=== PATIENT | male | born 1940 | race Caucasian/White ===

== ENCOUNTER 2020-02-23 15:23 | Emergency (ER) | payer MEDICARE, SELFPAY ==
--- NOTE | ~2020-02-23 | XR_ITS ---
EXAMINATION: XR foot LT min 3V EXAM DATE: 02/23/2020 16:27 INDICATION: Initial encounter following injury, with pain of the left foot. TECHNIQUE: Left foot dorsoplantar, lateral and oblique projections obtained and reviewed. There is n o prior study for comparison. FINDINGS: Left metatarsal bones unremarkable. There are no acute fractures or dislocations identifi ed. There is no subcutaneous gas. There are arterial calcifications, arteriosclerosis. There is mil d polyarticular primary osteoarthritis. There are no radiopaque foreign bodies. IMPRESSION: Chronic findings as above. Reviewed, dictated and finalized at location A. IMPRESSION: Chronic findings as above.
--- NOTE | ~2020-02-23 | XR_ITS ---
EXAMINATION: XR tibia fibula LT 2V EXAM DATE: 02/23/2020 16:27 INDICATION: Initial encounter following injury, with pain of the left leg. TECHNIQUE: Left tibia/fibula frontal and lateral projections obtained and reviewed. There is no prio r study for comparison. FINDINGS: There is fracture through the midshaft of the left fibula which appears to be completely h ealed. Also sequela from prior medial malleolar avulsion injuries. There are arterial calcifications, arteriosclerosis. There are no acute fractures identified. No knee joint effusion. IMPRESSION: 1. Healed left mid fibular fracture. Reviewed, dictated and finalized at location A.
--- NOTE | ~2020-02-23 | CT_ITS ---
EXAMINATION: CT brain wo con DATE: 02/23/2020 16:12 INDICATION: Status post fall. Head injury. TECHNIQUE: Computed tomography (CT) of the head was performed without intravenous contrast. The dose- length product was 681.00 mGy-cm. The mA was adjusted according to patient size. Iterative reconstruc tion technique was employed. COMPARISON: None FINDINGS: Generalized brain parenchymal volume loss. There are scattered mild periventricular and sub cortical white matter changes, most likely related to small vessel ischemic disease (microangiopathy) . Basilar cisterns are patent. No acute intracranial hemorrhage, infarction, mass or mass effect. Par anasal sinuses and mastoids are pneumatized. No depressed skull fractures. IMPRESSION: 1. No acute intracranial abnormality. 2: Chronic age-related findings. Reviewed, dictated and finalized at location A.
--- NOTE | ~2020-02-23 | CT_ITS ---
EXAMINATION: CT chst ab pel yuri lum w EXAM DATE: 02/23/2020 16:12 INDICATION: Fall, injury with chest abdomen pelvis and back pain. Tractor landed on top of him. TECHNIQUE: Spiral CT of the chest, abdomen and pelvis was performed following intravenous injection o f 100 mL Omnipaque 350. Axial, coronal and sagittal images were reviewed. Coronal maximum intensity pixel images of chest reviewed. Spiral CT thoracolumbar spine was performed with the same injection of contrast. Axial, coronal and sagittal images of the thoracic spine were reviewed. Axial, coronal a nd sagittal images of the lumbar spine were reviewed. The dose-length product (DLP) for this examina tion was 783.32 mGy-cm. The exposure was tailored according to patient size (auto mA exposure contro l), and iterative reconstruction (ASIR) was used as additional dose reduction technique. There is no prior study for comparison. FINDINGS: CHEST: There are acute left first and second rib fractures anteriorly with mild displacement of the s econd rib fracture. There are tiny foci of pneumomediastinum, tiny foci of gas along the left interco stal musculature between the first and second ribs and in the left retroclavicular region. Acute disp laced right first and second rib fractures anteriorly and nondisplaced right third, fourth and fifth rib fractures anteriorly. There is no pneumothorax suspected. There is cardiomegaly and pulmonary va scular congestion. There are regions of linear atelectasis. No central pulmonary emboli. Trace bilate ral pleural effusions. No pericardial effusion. Tracheobronchial tree is patent. There is no media stinal, hilar or axillary lymphadenopathy. There is mild coronary arterial calcification, arterial sclerosis. ABDOMEN PELVIS: No solid organ injury. The liver, spleen, adrenal glands and pancreas are unremarkab le. The gallbladder is contracted but otherwise unremarkable. Some exophytic renal cysts. Portal an d splenic veins are patent. Kidneys enhance symmetrically. There is no hydronephrosis. The prosta te is unremarkable. The bladder is unremarkable. There is no retroperitoneal or pelvic lymphadenopa thy. There is mild scattered arteriosclerotic disease. The appendix is not positively visualized. There is no pericecal inflammatory change to suggest appe ndicitis. The stomach and small bowel are unremarkable. There is expected amount of colonic stool. No free intraperitoneal gas. No pelvic or hip fracture. Small umbilical fat-containing hernia. THORACIC SPINE: Acute right third and fifth rib fractures of the posteromedial aspects. Patient has d iffuse idiopathic skeletal hyperostosis without fracture line identified through the osteophytes. No evidence of vertebral body fracture. The vertebral bodies are aligned in the AP dimension. There a re moderate-sized endplate osteophytes and overall moderate disc disease, mild to moderate facet arth ropathy. LUMBAR SPINE: Sacroiliac joints are intact. There is moderate to severe disc disease from L1 through L5. There is no evidence of acute lumbar fracture or spondylolysis. There is no disc space widening or traumatic vertebral body subluxation suspected. Paraspinal soft tissue is unremarkable. Congeni tally narrow lumbar spinal canal with superimposed spondylosis, central canal most severely narrowed at L2-3 and L3-4. IMPRESSION: 1. Acute right 1st-5th rib fractures and left 1st-2nd rib fractures. Small pneumomediastinum. Patien t at risk for flail chest and pneumothorax. 2. Cardiomegaly, trace pleural effusions. 3. 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 4. No acute abdomen or pelvis findings. Reviewed, dictated and finalized at location A. Electronically signed by Khanh Bartlett
--- NOTE | ~2020-02-23 | CT_ITS ---
EXAMINATION: CT cervical spine wo con DATE: 02/23/2020 16:12 INDICATION: Neck pain after fall TECHNIQUE: Computed tomography (CT) of the cervical spine was performed without intravenous contrast. The dose-length product was 454 mGy-cm. Automated exposure control and iterative reconstruction tech nique were employed. COMPARISON: No prior studies for comparison. FINDINGS: There is disc narrowing and endplate degenerative changes at C3-4 through C6-7. There is de generative anterolisthesis at C7-T1. Odontoid process within normal limits. There is generalized oste openia. No evidence for perched facet. There is advanced multilevel uncinate and to a lesser degree f acet degenerative change. Lung apices are normal. Odontoid process within normal limits. No paraspina l soft tissue abnormality. IMPRESSION: 1. No acute abnormality of the cervical spine. 2: Severe cervical spondylosis. Reviewed, dictated and finalized at location A.
[2020-02-23 15:23] VITALS: BP 116/67; PULSE 67; RESP 21; TEMP 36.4; O2SAT 93
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
[2020-02-23 16:30] VITALS: BP 133/77; PULSE 70; RESP 16; O2SAT 98
[2020-02-23] MEDS: ONDANSETRON INJ 4 MG/2 ML VIAL IV PUSH (16:32)
[2020-02-23] MEDS: MORPHINE SULFATE 4 MG/ML INJ IV PUSH (16:32)
[2020-02-23] MEDS: TETANUS,DIPHTHERIA,AC PERTUSSIS ADULT (0.5 ML) BOOSTRIX IM (16:32)
[2020-02-23] MEDS: SODIUM CHLORIDE 0.9% IV 1,000 ML 999 ML IV CONT (16:32)
[2020-02-23 17:01] LABS: Basophils Absolute Auto 0.1 K/mm3 (0.0-0.1); Basophils Percent Auto 0.4 % (0.2-1.2); Eosinophils Absolute Auto 0.1 K/mm3 (0-0.3); Eosinophils Percent Auto 0.4 % (0-4.4); Hematocrit 39.6 % (42.0-52.0); Hemoglobin 13.5 g/dL (14.0-18.0); Immature Granulocyte Absolute 0.08 K/mm3 (0.00-0.031); Immature Granulocyte Percent A 0.5 % (0-0.5); Lymphocytes Absolute Auto 0.92 K/mm3 (0.9-3.2); Lymphocytes Percent Auto 5.8 % (18.3-44.2); Mean Corpuscular HGB Conc 34.1 g/dl (32-36); Mean Corpuscular Hemoglobin 30.8 pg (26-34); Mean Corpuscular Volume 90.4 fl (80-100); Mean Platelet Volume 9.8 fl (7.4-10.4); Monocytes Percent Auto 6.5 % (2.6-8.5); Neutrophils Absolute Auto 13.7 K/mm3 (1.3-6.7); Neutrophils Percent Auto 86.4 % (45.5-73.1); Platelet Count Result 178 k/mm3 (150-375); Red Blood Count 4.38 M/mm3 (4.6-6.20); Red Cell Distribution Width 12.5 % (11.5-14.5); White Blood Count 15.8 K/mm3 (4.5-10.0)
[2020-02-23 17:12] LABS: INR 2.1; Prothrombin Time 23.3 Seconds (11.1-14.7)
[2020-02-23 17:13] LABS: Partial Thromboplastin Time 27.6 SECONDS (22.3-36.8)
[2020-02-23 17:30] VITALS: BP 138/78; PULSE 68; RESP 14; O2SAT 97
[2020-02-23 17:30] LABS: Alanine Aminotransferase 10 U/L (4-50); Albumin Level 3.8 g/dL (3.5-5.1); Alkaline Phosphatase 70 U/L (38-126); Aspartate Amino Transferase 42 U/L (17-59); Bilirubin,Total 0.8 mg/dL (0.2-1.3); Blood Urea Nitrogen 15 mg/dL (9-20); Calcium 8.9 mg/dL (8.4-10.2); Carbon Dioxide 30 mmol/L (22-30); Chloride 99 mmol/L (98-107); Estimated CRCL calculation 67 ml/min; Estimated Glomerular Filt Rate 58; Glucose 128 mg/dL (75-110); Potassium 3.6 mmol/L (3.4-5.0); Sodium 137 mmol/L (137-145)
[2020-02-23 17:40] LABS: Troponin I 0.022 ng/mL (0.000-0.034)
[2020-02-23 18:15] VITALS: BP 122/90; PULSE 72; RESP 13; O2SAT 97
--- NOTE | 2020-02-23 18:33 | PC.NURSE ---
at 1758 [facility] accepted transfer at 1829 [facility] notified [facility] sec that the could not do transfer that truck broke down in [facility]
--- NOTE | 2020-02-23 18:41 | PC.NURSE ---
[facility] declined transfer [facility] accepted transfer ETA 30min Trip # [id number]
[2020-02-23] MEDS: methylPREDNISolone SOD SUCC 125 MG VIAL IV PUSH (18:49)
== END 2020-02-23 19:46 | disposition short-term general hospital (02) ==
PROVIDERS: Emergency Provider Emergency Medicine; PCP Family Medicine
DX: T79.7XXA Traumatic subcutaneous emphysema, initial encounter (principal); S22.43XA Multiple fractures of ribs, bilateral, initial encounter for closed fracture; I11.0 Hypertensive heart disease with heart failure; F03.90 Unspecified dementia, unspecified severity, without behavioral disturbance, psychotic disturbance, mood disturbance, and anxiety; G93.1 Anoxic brain damage, not elsewhere classified; Z79.01 Long term (current) use of anticoagulants; G21.4 Vascular parkinsonism; I48.91 Unspecified atrial fibrillation; I50.33 Acute on chronic diastolic (congestive) heart failure; M47.812 Spondylosis without myelopathy or radiculopathy, cervical region; Z23 Encounter for immunization; M47.816 Spondylosis without myelopathy or radiculopathy, lumbar region; M48.061 Spinal stenosis, lumbar region without neurogenic claudication; W30.89XA Contact with other specified agricultural machinery, initial encounter; Y93.H2 Activity, gardening and landscaping; W28.XXXA Contact with powered lawn mower, initial encounter
CPT/HCPCS: 36415; 70450; 71260; 72125; 72129; 72132; 73590; 73630; 74177; 80053; 84484; 85025; 85610; 85730; 86850; 86900; 86901; 90471; 90715; 96361; 96365; 96367; 96375; 99285; J0131; J0692; J2270; J2405; J2930; J3370; J7030; Q9967

== ENCOUNTER 2020-10-29 10:40 | Inpatient (IN) | payer MEDICARE, SELFPAY ==
[2020-10-29] VITALS (18 sets, daily range): BP systolic 132–154; BP diastolic 72–104; PULSE 71–88; RESP 17–30; TEMP 36.1–36.6; O2SAT 87–100; BMI 26.5
--- NOTE | ~2020-10-29 | XR_ITS ---
EXAMINATION: XR chest 1V portable INDICATION: Shortness of breath TECHNIQUE: Portable AP chest at 1119 hours COMPARISON: 11/10/2018 FINDINGS: There is small right pleural effusion. Patchy bilateral airspace opacities are present. The cardiomediastinal silhouette is normal. There is no pneumothorax. IMPRESSION: 1. Small right pleural effusion. 2. Patchy bilateral airspace opacities, consistent with atelectasis versus pneumonia. Reviewed, dictated and finalized at location A. C BOOK DESIGNER IMPRESSION: 1. Small right pleural effusion. 2. Patchy bilateral airspace opacities, consistent with atelectasis versus pneu monia.
--- NOTE | ~2020-10-29 | CT_ITS ---
EXAMINATION: CT chest wo con DATE: 10/29/2020 12:10 INDICATION: Shortness of breath TECHNIQUE: Computed tomography (CT) of the chest was performed without intravenous contrast. The dose -length product (DLP) was 237.89 mGy-cm. Automated exposure control and iterative reconstruction tech nique were employed. COMPARISON: None FINDINGS: Small pleural effusions are present, right greater than left. Respiratory motion artifact s lightly limits the examination. There are patchy airspace opacities of the lungs. No pneumothorax is identified. The heart size is normal. There are markedly enlarged left axillary and left subpectoral lymph nodes. The largest measures 5.5 x 4.3 cm. There is mild mediastinal lymphadenopathy. There are multiple right-sided rib fractures in various stages of healing. There are acute segmental fractures of the right seventh and eighth ribs. There are bridging osteophytes at multiple levels in the spine, consistent with diffuse idiopathic skeletal hyperostosis (DISH).There is a 2.3 cm cyst of the left k idney upper pole. An unchanged 1.5 cm lesion of the right kidney upper pole has a density similar to the previous contrast enhanced CT and likely represents a proteinaceous cyst. IMPRESSION: 1. Small pleural effusions, right greater than left. 2. Patchy airspace opacities of the lungs, consistent with pneumonia. 3. Right-sided rib fractures in various stages of healing including acute segmental fractures of the left seventh and eighth ribs. 4. Bulky right axillary and subpectoral lymphadenopathy and mild mediastinal lymphadenopathy, consist ent with lymphoma or possibly metastatic disease. Axillary lymph nodes would be accessible by ultraso und guided biopsy which is recommended. Reviewed, dictated and finalized at location A. GRAPHER IMPRESSION: 1. Small pleural effusions, right greater than left. 2. Patchy airspace opacities of the lungs, consistent with pneumonia. 3. Right-sided rib fractures in various stages of healing including acute segme ntal fractures of the left seventh and eighth ribs. 4. Bulky right axillary and subpectoral lymphadenopathy and mild mediastinal ly mphadenopathy, consistent with lymphoma or possibly metastatic disease. Axillar y lymph nodes would be accessible by ultrasound guided biopsy which is recommen ded.
--- NOTE | ~2020-10-29 | US_ITS ---
EXAMINATION: US biopsy lymph node DATE: 11/02/2020 12:18 INDICATION: Left axillary lymphadenopathy. TECHNIQUE: The procedure including the risks, benefits, and alternatives was discussed with the patie nt. Risks discussed included bleeding and infection. The patient understood the risks and agreed to p roceed. The skin overlying the left axilla was prepped and draped in usual sterile fashion. Anesthet ic was administered with 1% lidocaine subcutaneously. An 18 gauge core biopsy needle was then used t o obtain 6 core biopsy specimens under continuous sonographic guidance. The entry site was cleaned an d dressed. There were no immediate complications. FINDINGS: Ultrasound images demonstrate the needle in a 4.5 x 2.5 cm left axillary lymph node. IMPRESSION: 1. Ultrasound-guided core needle biopsy of an enlarged left axillary lymph node. Reviewed, dictated and finalized at location A. CTOR OF RECRUITING IMPRESSION: 1. Ultrasound-guided core needle biopsy of an enlarged left axillary lymph node .
--- NOTE | 2020-10-29 10:43 | ECG_ITS ---
Measurements Intervals [place] Rate: 79 P: [place]: 0 QRS: 27 QRSD: 110 T: 136 QT: 384 QTc: 441 Interpretive Statements ATRIAL FIBRILLATION ST-T WAVE ABNORMALITY IN ANTEROLAT/HIGH LAT LEADS- CONSIDER ISCHEMIA BASELINE ARTIFACT- I, II, III, AVR, AVF, V3 ABNORMAL ECG Electronically Signed On 10-29-2020 11:22:39 STAVE LOG RIPSAW OPERATOR by Justin Shi D.O.
[2020-10-29 11:05] LABS: Basophils Absolute Auto 0.1 K/mm3 (0.0-0.1); Basophils Percent Auto 0.6 % (0.2-1.2); Eosinophils Absolute Auto 0.3 K/mm3 (0-0.3); Eosinophils Percent Auto 2.4 % (0-4.4); Hematocrit 41.8 % (42.0-52.0); Immature Granulocyte Absolute 0.04 K/mm3 (0.00-0.031); Immature Granulocyte Percent A 0.3 % (0-0.5); Lymphocytes Percent Auto 9.3 % (18.3-44.2); Mean Corpuscular HGB Conc 33.5 g/dl (32-36); Mean Corpuscular Volume 92.5 fl (80-100); Mean Platelet Volume 9.6 fl (7.4-10.4); Monocytes Percent Auto 8.8 % (2.6-8.5); Neutrophils Absolute Auto 9.3 K/mm3 (1.3-6.7); Neutrophils Percent Auto 78.6 % (45.5-73.1); Platelet Count Result 248 k/mm3 (150-375); Red Blood Count 4.52 M/mm3 (4.6-6.20); Red Cell Distribution Width 13.8 % (11.5-14.5); White Blood Count 11.9 K/mm3 (4.5-10.0)
--- NOTE | 2020-10-29 11:15 | ED.SOB ---
HPI - SOB/Dyspnea General Chief Complaint: Shortness of Breath/Dyspnea Stated Complaint: DIFFICULTY BREATHING Time Seen by Provider: 10/29/20 11:10 Source: patient Mode of arrival: ambulatory Limitations: no limitations History of Present Illness HPI Narrative: Patient 70-year-old male complaining of shortness of breath worse with exertion and laying flat x2 days. Per EMS patient oxygen saturation was 86% when they arrived. Patient was placed on 6 L nasal cannula. Patient admits to history of congestive heart failure atrial fib, on Lasix and warfarin. Patient denies any chest pain, abdominal pain, nausea, vomiting, fever or chills. Related Data Home Medications Medication Instructions Recorded Confirmed celecoxib 200 mg capsule 200 mg PO DAILY 11/17/19 10/22/20 quetiapine 10/29/20 Allergies Allergy/AdvReac Type Severity Reaction Status Date / Time atenolol Allergy Unknown drowsy Verified 10/29/20 11:43 nut - unspecified Allergy Unknown Skin Verified 10/29/20 11:43 Reaction Penicillins Allergy Unknown Unknown Verified 10/29/20 11:43 red dye Allergy Unknown RASH-ITCHIN Verified 10/29/20 11:43 G Sulfa (Sulfonamide Allergy Unknown Unknown Verified 10/29/20 11:43 Antibiotics) trazodone Allergy Unknown nightmares Verified 10/29/20 11:43 acetaminophen [From [place]] AdvReac Intermediate Itching Verified 10/29/20 11:43 hydrocodone [From [place]] AdvReac Intermediate Itching Verified 10/29/20 11:43 Review of Systems Review of Systems: All systems reviewed & are unremarkable except as noted in HPI and below Constitutional: Constitutional: Denies body ache(s), Denies chills, Denies excessive sweating, Denies fatigue, Denies fever(s), Denies headache(s), Denies lethargy, Denies malaise, Denies weakness and Denies weight loss Eyes: Eyes: Denies blurry vision, Denies change in vision and Denies loss of vision ENT: Denies dizziness, Denies ear discharge, Denies headache(s), Denies lip swelling, Denies epistaxis, Denies nasal congestion, Denies neck pain, Denies throat swelling and Denies tongue swelling Cardiovascular: Cardiovascular: Denies chest pain, Denies chest pain at rest, Denies chest pain with activity, Denies diaphoresis, Denies rapid heart rate, Denies edema, Denies irregular heart rhythm, Denies lightheadedness and Denies palpitations Respiratory: Respiratory: Denies chest congestion, Denies cough and Denies hemoptysis Gastrointestinal: Gastrointestinal: Denies abdominal pain, Denies melena, Denies hematochezia, Denies diarrhea, Denies nausea, Denies vomiting and Denies hematemesis Musculoskeletal: Musculoskeletal: Denies abnormal gait, Denies deformity, Denies joint swelling, Denies limited range of motion, Denies neck pain and Denies numbness Neurologic: Denies Abnormal speech present, Denies abnormal gait, Denies confusion, Denies dizziness, Denies headache(s), Denies focal weakness, Denies loss of vision, Denies numbness, Denies Other visual disturbances, Denies Sensory deficit (Neuro) and Denies weakness Psychiatric: Psychiatric: Denies confusion, Denies depression, Denies auditory hallucinations, Denies homicidal ideation and Denies suicidal ideation Endocrine: Endocrine: Denies cold intolerance, Denies excessive sweating, Denies fatigue, Denies heat intolerance and Denies palpitations Hematologic/Lymphatic: Hematologic/Lymphatic: Denies easy bleeding and Denies easy bruising Allergic/Immunologic: Allergic/Immunologic: Denies lip swelling, Denies throat swelling and Denies tongue swelling PMFSH Past Medical History Medical History Actinic keratoses Acute on chronic diastolic CHF (congestive heart failure) Angioneurotic edema, sequela Displacement of lumbar intervertebral disc without myelopathy Essential (primary) hypertension Essential tremor Fracture of ribs, eight or more Hallucinations due to late onset dementia Hypoxic encephalopathy Left-sided
[2020-10-29 11:18] LABS: Partial Thromboplastin Time 47.9 SECONDS (22.3-36.8)
[2020-10-29 11:20] LABS: Anion Gap 10 mmol/L (8-16); Blood Urea Nitrogen 20 mg/dL (9-20); Calcium 8.9 mg/dL (8.4-10.2); Carbon Dioxide 30 mmol/L (22-30); Chloride 103 mmol/L (98-107); Estimated CRCL calculation 39 ml/min; Estimated Glomerular Filt Rate 53; Glucose 108 mg/dL (75-110); Potassium 3.8 mmol/L (3.4-5.0); Sodium 143 mmol/L (137-145)
[2020-10-29 11:21] LABS: Lactic Acid Reflex 1.7 mmol/L (0.7-2.1)
[2020-10-29 11:34] LABS: NT Pro B Type Natriuretic Pept 2360 PG/ML (5-100); Troponin I 0.016 ng/mL (0.000-0.034)
[2020-10-29 11:40] LABS: Base Excess ABG -0.1 mEq/l (+/-2.0); Carboxyhemoglobin 0.3 % THb (0-2.0); Device NASAL CANNULA; Fractional Inspired Oxygen 44 %; HCO3 ABG 23.4 mEq/l (22.0-26.0); Methemoglobin ABG 0.3 %THb (0-1.5); Modified Allen's Test Pass; Oxygen Content ABG 18.3 %vol (16.0-22.0); Oxygen Saturation ABG 99.1 % (95.0-100.0); Oxyhemoglobin 97.8 % THb (90.0-100.0); PCO2 ABG 34.6 mmHg (35.0-45.0); PO2 ABG 156.3 mmHg (80.0-100.0); PO2 FiO2 Ratio Arterial Blood 3.55 %; Reduced Hemoglobin 1.6 %THb (0-5.0); Site Drawn RIGHT RADIAL; Total Hemoglobin 13.1 g/dL (12.0-18.0); pH ABG 7.448 (7.350-7.450)
[2020-10-29] MEDS: FUROSEMIDE INJ 40 MG/4 ML VIAL IV PUSH (11:55)
--- NOTE | 2020-10-29 13:23 | PC.NURSE ---
Spoke to Fern Taylor at [phone] and discussed POC per pts permission.
[2020-10-29] MEDS: DEXAMETHASONE SOD PHOS INJ 4 MG/ML VIAL 10 MG IV PUSH (13:52)
[2020-10-29] MEDS: IPRATROPIUM BR 0.02% INH SOLN 0.5 MG/2.5 ML VIAL INHALATION (14:02)
[2020-10-29] MEDS: ALBUTEROL SULFATE NEB 2.5 MG/0.5 ML INH 5 MG INHALATION (14:02)
[2020-10-29] MEDS: ACETAMINOPHEN 325 MG TABLET 650 MG (19:37)
[2020-10-29 22:22] LABS: SARS-CoV-2 RNA PCR Negative
--- NOTE | 2020-10-29 23:07 | PC.NURSE ---
This patient, Ramses Taylor, was admitted to IMU Room 213-01. Patient/family oriented to hospital policies and general routines including ID braceletanagement, bed and alarms, visiting hours, pain m, procedures, bathroom and other care routines, personal items, smoking policy, room service/diet, and visiting hours. Information on how to activate the Rapid Response Team has been discussed. Patient/Family are encouraged to report perceived risks to care and to ask questions if they do not understand what they are told or what they should do.
[2020-10-30] VITALS (25 sets, daily range): BP systolic 92–189; BP diastolic 48–93; PULSE 55–103; RESP 18–24; TEMP 36.1–36.9; O2SAT 92–97
--- NOTE | 2020-10-30 03:02 | PM.IMHP ---
H&P: HPI History of Present Illness Date/Time: 10/30/20 03:02 Chief Complaint: Shortness of breath Narrative: Ramses Taylor is a 80 year old male with a past medical history of hypertension, CHF, atrial fibrillation and Parkinson's to shortness of breath and orthopnea. In the field the patient had oxygen saturations of 86% on room air. He also reported dyspnea on exertion and orthopnea. Patient will not offer specific symptoms in seems confused. But if you ask him about a symptom he is able to give more details in his response. He has not had any documented fevers but he did report having chills at home. His symptoms have been occurring for approximately2-4 days. However, the patient is a poor historian with his history of dementia. His reports that he has chronic dribbling with urination but he denies any urinary symptoms. He has been having decreased appetite. At the time of my evaluation the patient did report of brief episode of nausea. Also his telemetry demonstrated potential change in the nurse was concerned that he had developed a bundle branch block. Repeat EKG was performed which demonstrated stable EKG findings. He has not had any recent ill contacts. He was tested for COVID in the ER and his test has already returned as negative. On 6 L nasal cannula in the ER his ABG returned with a PO2 of 156. We have subsequently wean the patient's oxygen down to 3 L nasal cannula. He appears comfortable and not having tachypnea. And Lasix in the ER. Airspace opacities consistent with atelectasis versus pneumonia given his leukocytosis he was started on empiric antibiotic therapy and cultures were obtained. Initially the patient did not fit sepsis criteria but he has subsequently developed tachypnea and tachycardia shortly after my evaluation and associated leukocytosis and pneumonia on x-ray supporting sepsis diagnosis. Review of Systems Review of Systems: Narrative: 12 systems were reviewed with pertinent positives and negatives per HPI. Except as documented in the HPI, all other systems were reviewed and are negative. Limited due to patient's dementia. [facility] Past Medical History Medical History (Updated 10/30/20 @ 07:59 by Rebecca Cantrell DO) Actinic keratoses Angioneurotic edema, sequela Chronic atrial fibrillation CVA (cerebral vascular accident) Diastolic CHF Echocardiogram October 2018: Normal left ventricular systolic function, mild concentric left ventricular hypertrophy, diastolic dysfunction, ejection fraction 55-60%, moderate left atrial enlargement, mild right atrial enlargement, mild to moderate mitral valve regurgitation, mild aortic valve regurgitation, RVSP 38 Displacement of lumbar intervertebral disc without myelopathy Eczema Essential (primary) hypertension Fracture of ribs, eight or more GERD (gastroesophageal reflux disease) Hallucinations due to late onset dementia Hemorrhoids Hiatal hernia Hypoxic encephalopathy Irritable bowel Left-sided neglect alf (current) use of anticoagulants Major depressive disorder, single episode, unspecified Memory loss due to medical condition Overweight (BMI 25.0-29.9) Peripheral neuropathy Spinal stenosis, site unspecified Stress reaction with psychomotor agitation Urinary incontinence Vascular dementia Vascular parkinsonism Weight loss Surgical History Surgical History (Updated 10/30/20 @ 03:19 by Rebecca Cantrell DO) History of ankle surgery ORIF of the right ankle with subsequent removal of hardware 1998 History of appendectomy History of colonoscopy with polypectomy Hx of tonsillectomy Family History Family History (Updated 10/30/20 @ 03:24 by Rebecca Cantrell DO) Father , In his 70s Acute myocardial infarction Heart disease Sibling Carcinoma of colon Mother , In her 70s Throat cancer Social History Social History (Updated 10/30/20 @ 03:09 by Rebecca Cantrell DO) Social History: He lives at home with his wif
[2020-10-30 04:31] LABS: Hematocrit 37.1 % (42.0-52.0); Hemoglobin 12.6 g/dL (14.0-18.0); Mean Corpuscular Hemoglobin 31.3 pg (26-34); Mean Corpuscular Volume 92.3 fl (80-100); Mean Platelet Volume 9.3 fl (7.4-10.4); Platelet Count Result 226 k/mm3 (150-375); Red Blood Count 4.02 M/mm3 (4.6-6.20); Red Cell Distribution Width 13.4 % (11.5-14.5); White Blood Count 12.4 K/mm3 (4.5-10.0)
[2020-10-30] MEDS: ACETAMINOPHEN 325 MG TABLET 650 MG PO (04:33)
[2020-10-30 04:40] LABS: INR 2.3; Prothrombin Time 26.2 Seconds (11.1-14.7)
[2020-10-30 04:48] LABS: Magnesium 1.8 mg/dL (1.6-2.3)
[2020-10-30 04:49] LABS: Anion Gap 6 mmol/L (8-16); Blood Urea Nitrogen 21 mg/dL (9-20); Calcium 8.7 mg/dL (8.4-10.2); Carbon Dioxide 31 mmol/L (22-30); Chloride 104 mmol/L (98-107); Estimated CRCL calculation 44 ml/min; Estimated Glomerular Filt Rate > 60; Glucose 127 mg/dL (75-110); Potassium 3.9 mmol/L (3.4-5.0); Sodium 141 mmol/L (137-145)
[2020-10-30 05:01] LABS: Troponin I 0.028 ng/mL (0.000-0.034)
--- NOTE | 2020-10-30 07:44 | ECG_ITS ---
Measurements Intervals [place] Rate: 57 P: AK: 0 QRS: 7 QRSD: 100 T: -56 QT: 389 QTc: 380 Interpretive Statements ATRIAL FIBRILLATION WITH SLOW VENTRICULAR RESPONSE VENTRICULAR PREMATURE COMPLEXES BORDERLINE ST-T WAVE ABNORMALITY- DIFFUSE LEADS ABNORMAL ECG Electronically Signed On 10-30-2020 10:22:31 [employer] by Justin Shi D.O.
[2020-10-30 07:52] LABS: Troponin I 0.038 ng/mL (0.000-0.034)
[2020-10-30] MEDS: FLUoxetine HCL 20 MG CAPSULE 40 MG PO (08:29)
[2020-10-30] MEDS: FUROSEMIDE INJ 40 MG/4 ML VIAL IV PUSH (08:29)
[2020-10-30] MEDS: GABAPENTIN 100 MG CAPSULE PO ×2 (08:30→17:06)
[2020-10-30] MEDS: buPROPion HCL XL (24 HR) 150 MG TABCR 300 MG PO (08:30)
[2020-10-30] MEDS: ATORVASTATIN 10 MG TABLET PO (08:30)
[2020-10-30] MEDS: POTASSIUM CHLORIDE 10 MEQ TABLET.ER PO (08:30)
[2020-10-30] MEDS: QUEtiapine FUMARATE 25 MG TABLET 50 MG PO ×2 (08:30→17:06)
[2020-10-30] MEDS: PRIMIDONE 50 MG TABLET PO ×2 (08:30→17:06)
[2020-10-30] MEDS: lisinopriL 10 MG TABLET PO (08:30)
[2020-10-30] MEDS: CARBIDOPA/LEVODOPA 25/100 MG TABLET 2 TABLET PO ×2 (08:30→17:06)
[2020-10-30] MEDS: atenoloL 50 MG TABLET PO ×2 (08:31→17:06)
[2020-10-30] MEDS: ALBUTEROL SULFATE NEB 2.5 MG/0.5 ML INH 5 MG INHALATION ×3 (09:18→20:19)
[2020-10-30] MEDS: IPRATROPIUM BR 0.02% INH SOLN 0.5 MG/2.5 ML VIAL INHALATION ×3 (09:18→20:19)
[2020-10-30 10:40] LABS: Troponin I 0.036 ng/mL (0.000-0.034)
--- NOTE | 2020-10-30 13:51 | PM.IMPN ---
Progress Note: A&P Assessment and Plan (1) Pneumonia: Qualifiers: Laterality: unspecified laterality Lung location: unspecified part of lung Pneumonia type: due to unspecified organism Qualified Code(s): J18.9 - Pneumonia, unspecified organism Code(s): J18.9 - Pneumonia, unspecified organism Status: Acute Assessment and Plan: COVID ruled out Continue empiric antibiotic therapy with Rocephin and azithromycin. (2) Sepsis: Qualifiers: Sepsis type: sepsis due to unspecified organism Sepsis acute organ dysfunction status: with acute organ dysfunction Severe sepsis acute organ dysfunction type: acute respiratory failure Acute respiratory failure type: with hypoxia Severe sepsis shock status: without septic shock Qualified Code(s): A41.9 - Sepsis, unspecified organism; R65.20 - Severe sepsis without septic shock; J96.01 - Acute respiratory failure with hypoxia Code(s): A41.9 - Sepsis, unspecified organism Status: Acute Assessment and Plan: Supported by criteria of leukocytosis, tachycardia, tachypnea and underlying pneumonia. Blood cultures are pending. Empiric antibiotic therapy with Rocephin and azithromycin. (3) Acute respiratory failure with hypoxia: Code(s): J96.01 - Acute respiratory failure with hypoxia Status: Acute Assessment and Plan: Due to pneumonia and CHF. Continue iv abx and iv diuresis (4) Lymphadenopathy: Code(s): R59.1 - Generalized enlarged lymph nodes Status: Acute Assessment and Plan: Imaging studies demonstrated bulky right axillary and subpectoral lymphadenopathy and mild mediastinal lymphadenopathy consistent with lymphoma or metastatic disease. I will consult pulmology. (5) Congestive heart failure (CHF): Qualifiers: Heart failure chronicity: acute on chronic Heart failure type: unspecified Qualified Code(s): I50.9 - Heart failure, unspecified Code(s): I50.9 - Heart failure, unspecified Status: Acute Assessment and Plan: Continue IV lasix. (6) Traumatic closed displaced fracture of rib: Qualifiers: Encounter type: initial encounter Laterality: right Qualified Code(s): S22.31XA - Fracture of one rib, right side, initial encounter for closed fracture Code(s): S22.39XA - Fracture of one rib, unspecified side, initial encounter for closed fracture Status: Acute Assessment and Plan: He is evidently had a fall several months ago (7) Dysphagia: Qualifiers: Dysphagia type: unspecified Qualified Code(s): R13.10 - Dysphagia, unspecified Code(s): R13.10 - Dysphagia, unspecified Status: Acute Assessment and Plan: Patient's reports that the patient seems to have some difficulty swallowing at times. He used evidently had prior EGDs without actual esophageal dilatation (8) Supratherapeutic INR: Code(s): R79.1 - Abnormal coagulation profile Status: Acute Assessment and Plan: The patient's INR has improved down to 2.3. Will continue to hold Coumadin in case the patient and family decided to proceed with lymph node biopsy. Subjective Date/time seen: 10/30/20 13:51 Interval history: 80 year old male with a past medical history of hypertension, CHF, atrial fibrillation and Parkinson's to shortness of breath and orthopnea. Pt complains of sob. Pt has history of dementia is a poor historian. Review of Systems Review of Systems: All systems reviewed & are unremarkable except as noted in HPI and below Exam Narrative: Exam Narrative: Generally: Tired, unwell old man Respiratory: BL decreased BS with crackles Cardiovascular: RRR Gastrointestinal: Soft, nontender, nondistended, positive bowel sounds Musculoskeletal: No clubbing, cyanosis or pitting edema Neurological: Alert answering questions Psychiatric: Pleasant Objective Data Vital Signs Vital Signs: Vital
--- NOTE | 2020-10-30 15:43 | PM.CNPUL ---
Assessment and Plan Assessment and plan (1) Lymphadenopathy: Code(s): R59.1 - Generalized enlarged lymph nodes Status: Acute Assessment and Plan: Patient with large left axillary lymphadenopathy (The largest measures 5.5 x 4.3 cm.) and mild mediastinal adenopathy in the setting of pneumonia and fluid overload. the left axillary lymphadenopathy was not present on a CT scan from 02/23/2020. I suspect that this is pathologic. I spoke to the patient and explained that he had an abnormality in his left armpit and recommended that the best procedure to diagnose the abnormality would be an ultrasound-guided biopsy. The patient told me that he did not want any biopsies at this time. I told him that this may be cancer and that he may require treatment for this cancer but he again stated that he did not want a biopsy at this point. I told him to think about things overnight and that I would have his doctors talk to him again in the morning to see if he still felt this way. I spoke with Dr. Mendoza and she will also speak with the and will follow up with the patient tomorrow. Thank you for this consult. I will sign off now in please call with any further questions. History of Present Illness History of Present Illness Consult date: 10/30/20 Requesting physician: Savanah Mendoza MD Reason for consult: other (axillary and mediastinal adenopathy) Chief complaint: Acute Resp Failure/Pneumonia/CHF Narrative: Patient 80-year-old male history of hypertension, CHF, atrial fibrillation and Parkinson's. Patient presented on 10/29 with hypoxia, altered mental status and was treated for pneumonia and fluid overload. He is COVID-19 negative. Patient had a CT scan of the chest on 10/29 that showed bulky left axillary, pectoral and mild mediastinal lymphadenopathy with acute fractures of the right 7th and 8th rib. Patient also had bilateral effusions right greater than left and infiltrates in the lingula and left upper lobe. I was consulted for the left axillary pectoral and mediastinal lymphadenopathy. Patient had CT C/A/P on 02/23/2020 and ther is no left axillary adenopathy present on that scan. Patient states that he has had the bump under his left arm for many years. He does not know specifically how many years when I pressed him further. He denies pain in that area. He denies any loss of mobility in the left arm. Patient denies any chronic nocturnal night sweats. Patient states that he has lost 50 lb in the last 3 years but that this was intentional. Patient does not notice any other lymph nodes or swollen masses throughout his body. Patient does state that he is breathing back to normal now and he is on 2 L nasal cannula oxygen in no respiratory distress. 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 Patient followed commands. Review of Systems Review of Systems: All systems reviewed & are unremarkable except as noted in HPI and below Constitutional: Constitutional: Reports no additional constitutional complaints Eyes: Eyes: Reports no additional eye complaints ENT: Reports sinus pressure Cardiovascular: Cardiovascular: Denies chest pain Respiratory: Respiratory: Reports dyspnea Gastrointestinal: Gastrointestinal: Denies abdominal pain Genitourinary: Genitourinary: Denies dysuria Musculoskeletal: Musculoskeletal: Denies myalgias, Denies arthralgias and Denies neck pain Integumentary/Breasts: Skin/Breast: Denies rash Neurologic: Reports behavioral changes Psychiatric: Psychiatric: Reports no additional psychiatric complaints, Denies anxiety and Reports behavioral changes Endocrine: Endocrine: Reports no additional endocrine complaints [facility] Past Medical History Medical History (Updated 10/30/20 @ 07:59 by Rebecca Cantrell DO) Actinic keratoses Angioneurotic edema, sequela [employer]ment Specialist
[2020-10-31] VITALS (24 sets, daily range): BP systolic 101–163; BP diastolic 66–84; PULSE 58–92; RESP 18–22; TEMP 36.4–36.6; O2SAT 90–98
[2020-10-31] MEDS: ALBUTEROL SULFATE NEB 2.5 MG/0.5 ML INH 5 MG INHALATION ×4 (02:36→20:50)
[2020-10-31] MEDS: IPRATROPIUM BR 0.02% INH SOLN 0.5 MG/2.5 ML VIAL INHALATION ×4 (02:36→20:50)
[2020-10-31 05:18] LABS: INR 1.8; Prothrombin Time 21.5 Seconds (11.1-14.7)
[2020-10-31 05:28] LABS: Anion Gap 5 mmol/L (8-16); Blood Urea Nitrogen 23 mg/dL (9-20); Calcium 8.6 mg/dL (8.4-10.2); Carbon Dioxide 32 mmol/L (22-30); Chloride 102 mmol/L (98-107); Estimated CRCL calculation 41 ml/min; Estimated Glomerular Filt Rate 58; Glucose 124 mg/dL (75-110); Potassium 4.1 mmol/L (3.4-5.0); Sodium 139 mmol/L (137-145)
[2020-10-31] MEDS: buPROPion HCL XL (24 HR) 150 MG TABCR 300 MG PO (08:30)
[2020-10-31] MEDS: FLUoxetine HCL 20 MG CAPSULE 40 MG PO (08:31)
[2020-10-31] MEDS: ATORVASTATIN 10 MG TABLET PO (08:31)
[2020-10-31] MEDS: PRIMIDONE 50 MG TABLET PO ×2 (08:31→17:33)
[2020-10-31] MEDS: POTASSIUM CHLORIDE 10 MEQ TABLET.ER PO (08:32)
[2020-10-31] MEDS: GABAPENTIN 100 MG CAPSULE PO ×2 (08:32→17:34)
[2020-10-31] MEDS: atenoloL 50 MG TABLET PO ×2 (08:32→17:34)
[2020-10-31] MEDS: lisinopriL 10 MG TABLET PO (08:32)
[2020-10-31] MEDS: CARBIDOPA/LEVODOPA 25/100 MG TABLET 2 TABLET PO ×2 (08:32→17:33)
[2020-10-31] MEDS: FUROSEMIDE INJ 40 MG/4 ML VIAL IV PUSH (08:33)
[2020-10-31] MEDS: QUEtiapine FUMARATE 25 MG TABLET 50 MG PO ×2 (08:38→17:35)
--- NOTE | 2020-10-31 12:57 | PM.IMPN ---
Progress Note: A&P Assessment and Plan (1) Pneumonia: Qualifiers: Laterality: unspecified laterality Lung location: unspecified part of lung Pneumonia type: due to unspecified organism Qualified Code(s): J18.9 - Pneumonia, unspecified organism Code(s): J18.9 - Pneumonia, unspecified organism Status: Acute Assessment and Plan: COVID ruled out Continue empiric antibiotic therapy with Rocephin and azithromycin. (2) Sepsis: Qualifiers: Acute respiratory failure type: with hypoxia Sepsis acute organ dysfunction status: with acute organ dysfunction Sepsis type: sepsis due to unspecified organism Severe sepsis acute organ dysfunction type: acute respiratory failure Severe sepsis shock status: without septic shock Qualified Code(s): A41.9 - Sepsis, unspecified organism; R65.20 - Severe sepsis without septic shock; J96.01 - Acute respiratory failure with hypoxia Code(s): A41.9 - Sepsis, unspecified organism Status: Acute Assessment and Plan: Supported by criteria of leukocytosis, tachycardia, tachypnea and underlying pneumonia. Blood cultures are pending. Empiric antibiotic therapy with Rocephin and azithromycin. (3) Acute respiratory failure with hypoxia: Code(s): J96.01 - Acute respiratory failure with hypoxia Status: Acute Assessment and Plan: Due to pneumonia and CHF. Continue iv abx and iv diuresis (4) Lymphadenopathy: Code(s): R59.1 - Generalized enlarged lymph nodes Status: Acute Assessment and Plan: Imaging studies demonstrated bulky right axillary and subpectoral lymphadenopathy and mild mediastinal lymphadenopathy consistent with lymphoma or metastatic disease. Family want hospice ok for axillary lymph node biopsy if needed for hospice team and diagnosis. (5) Congestive heart failure (CHF): Qualifiers: Heart failure chronicity: acute on chronic Heart failure type: unspecified Qualified Code(s): I50.9 - Heart failure, unspecified Code(s): I50.9 - Heart failure, unspecified Status: Acute Assessment and Plan: Continue IV lasix. (6) Traumatic closed displaced fracture of rib: Qualifiers: Encounter type: initial encounter Laterality: right Qualified Code(s): S22.31XA - Fracture of one rib, right side, initial encounter for closed fracture Code(s): S22.39XA - Fracture of one rib, unspecified side, initial encounter for closed fracture Status: Acute Assessment and Plan: He is evidently had a fall several months ago (7) Dysphagia: Qualifiers: Dysphagia type: unspecified Qualified Code(s): R13.10 - Dysphagia, unspecified Code(s): R13.10 - Dysphagia, unspecified Status: Acute Assessment and Plan: Patient's reports that the patient seems to have some difficulty swallowing at times. He used evidently had prior EGDs without actual esophageal dilatation (8) Supratherapeutic INR: Code(s): R79.1 - Abnormal coagulation profile Status: Acute Assessment and Plan: The patient's INR has improved down to 1.8. Will continue to hold Coumadin in case the patient and family decided to proceed with lymph node biopsy. Subjective Date/time seen: 10/31/20 12:57 Interval history: 80 year old male with a past medical history of hypertension, CHF, atrial fibrillation and Parkinson's to shortness of breath and orthopnea. Pt complains of sob. Pt has history of dementia is a poor historian. Family requesting hospice. Pt has lymph nodes and suspicious lymphadenopathy. Pt can have axillary lymph node biopsy if needed for hospice team and diagnosis. Review of Systems Review of Systems: All systems reviewed & are unremarkable except as noted in HPI and below Exam Narrative: Exam Narrative: Generally: Tired, unwell old man Respiratory: BL decreased BS with crackles Cardiovascular: RRR Gastrointestinal:
[2020-11-01] VITALS (21 sets, daily range): BP systolic 105–161; BP diastolic 53–84; PULSE 65–90; RESP 16–24; TEMP 35.9–37.2; O2SAT 91–99
[2020-11-01] MEDS: ALBUTEROL SULFATE NEB 2.5 MG/0.5 ML INH 5 MG INHALATION ×4 (03:44→20:17)
[2020-11-01] MEDS: IPRATROPIUM BR 0.02% INH SOLN 0.5 MG/2.5 ML VIAL INHALATION ×4 (03:45→20:18)
[2020-11-01 05:39] LABS: INR 1.6; Prothrombin Time 19.2 Seconds (11.1-14.7)
[2020-11-01] MEDS: POTASSIUM CHLORIDE 10 MEQ TABLET.ER PO (09:11)
[2020-11-01] MEDS: CARBIDOPA/LEVODOPA 25/100 MG TABLET 2 TABLET PO ×2 (09:12→16:44)
[2020-11-01] MEDS: ATORVASTATIN 10 MG TABLET PO (09:12)
[2020-11-01] MEDS: GABAPENTIN 100 MG CAPSULE PO ×2 (09:12→16:44)
[2020-11-01] MEDS: buPROPion HCL XL (24 HR) 150 MG TABCR 300 MG PO (09:12)
[2020-11-01] MEDS: QUEtiapine FUMARATE 25 MG TABLET 50 MG PO ×2 (09:12→16:43)
[2020-11-01] MEDS: atenoloL 50 MG TABLET PO ×2 (09:12→16:42)
[2020-11-01] MEDS: lisinopriL 10 MG TABLET PO (09:13)
[2020-11-01] MEDS: FLUoxetine HCL 20 MG CAPSULE 40 MG PO (09:13)
[2020-11-01] MEDS: PRIMIDONE 50 MG TABLET PO ×2 (09:13→16:43)
[2020-11-01] MEDS: FUROSEMIDE INJ 40 MG/4 ML VIAL IV PUSH (09:14)
--- NOTE | 2020-11-01 14:07 | PM.IMPN ---
Progress Note: A&P Assessment and Plan (1) Pneumonia: Qualifiers: Laterality: unspecified laterality Lung location: unspecified part of lung Pneumonia type: due to unspecified organism Qualified Code(s): J18.9 - Pneumonia, unspecified organism Code(s): J18.9 - Pneumonia, unspecified organism Status: Acute Assessment and Plan: COVID ruled out Continue empiric antibiotic therapy with Rocephin and azithromycin. can transfer to medical floor. (2) Sepsis: Qualifiers: Sepsis type: sepsis due to unspecified organism Sepsis acute organ dysfunction status: with acute organ dysfunction Severe sepsis acute organ dysfunction type: acute respiratory failure Acute respiratory failure type: with hypoxia Severe sepsis shock status: without septic shock Qualified Code(s): A41.9 - Sepsis, unspecified organism; R65.20 - Severe sepsis without septic shock; J96.01 - Acute respiratory failure with hypoxia Code(s): A41.9 - Sepsis, unspecified organism Status: Acute Assessment and Plan: Supported by criteria of leukocytosis, tachycardia, tachypnea and underlying pneumonia. Full blood cultures are pending. Empiric antibiotic therapy with Rocephin and azithromycin. (3) Acute respiratory failure with hypoxia: Code(s): J96.01 - Acute respiratory failure with hypoxia Status: Acute Assessment and Plan: Due to pneumonia and CHF. Continue iv abx and iv diuresis (4) Lymphadenopathy: Code(s): R59.1 - Generalized enlarged lymph nodes Status: Acute Assessment and Plan: Imaging studies demonstrated bulky right axillary and subpectoral lymphadenopathy and mild mediastinal lymphadenopathy consistent with lymphoma or metastatic disease. Family want hospice ok for axillary lymph node biopsy if needed for hospice team and diagnosis. (5) Congestive heart failure (CHF): Qualifiers: Heart failure chronicity: acute on chronic Heart failure type: unspecified Qualified Code(s): I50.9 - Heart failure, unspecified Code(s): I50.9 - Heart failure, unspecified Status: Acute Assessment and Plan: Continue IV lasix. (6) Traumatic closed displaced fracture of rib: Qualifiers: Encounter type: initial encounter Laterality: right Qualified Code(s): S22.31XA - Fracture of one rib, right side, initial encounter for closed fracture Code(s): S22.39XA - Fracture of one rib, unspecified side, initial encounter for closed fracture Status: Acute Assessment and Plan: He is evidently had a fall several months ago (7) Dysphagia: Qualifiers: Dysphagia type: unspecified Qualified Code(s): R13.10 - Dysphagia, unspecified Code(s): R13.10 - Dysphagia, unspecified Status: Acute Assessment and Plan: Patient's reports that the patient seems to have some difficulty swallowing at times. He used evidently had prior EGDs without actual esophageal dilatation (8) Supratherapeutic INR: Code(s): R79.1 - Abnormal coagulation profile Status: Acute Assessment and Plan: The patient's INR has improved down to 1.8. Will continue to hold Coumadin in case the patient and family decided to proceed with lymph node biopsy. Subjective Date/time seen: 11/01/20 14:07 Interval history: 80 year old male with a past medical history of hypertension, CHF, atrial fibrillation and Parkinson's to shortness of breath and orthopnea. Pt complains of sob. Pt has history of dementia is a poor historian. Family requesting hospice. Pt has lymph nodes and suspicious lymphadenopathy. Pt can have axillary lymph node biopsy if needed for hospice team and diagnosis. Pt is ok for diagnostic lymph node biopsy Review of Systems Review of Systems: All systems reviewed & are unremarkable except as noted in HPI and below Exam Narrative: Exam Narrative: Generally: Tired, unwell old man with 1 li
[2020-11-01] MEDS: FUROSEMIDE 40 MG TABLET PO (16:42)
--- NOTE | 2020-11-01 20:32 | PC.NURSE ---
Report received per telephone from BENITA Giles RN.
--- NOTE | 2020-11-01 21:00 | PC.NURSE ---
Transfer received from IMU per hospital bed.
--- NOTE | 2020-11-01 21:00 | PC.NURSE ---
This patient, Ramses Taylor, was transferred to [facility] on 11/01/20 at 2100. Personal belongings sent with patient. Report given to Clarita GERMAIN. Appropriate documentation sent with patient.
[2020-11-02] VITALS (9 sets, daily range): BP systolic 173; BP diastolic 82; PULSE 75–94; RESP 18–26; O2SAT 87–96
[2020-11-02] MEDS: ALBUTEROL SULFATE NEB 2.5 MG/0.5 ML INH 5 MG INHALATION ×2 (02:17→08:28)
[2020-11-02] MEDS: IPRATROPIUM BR 0.02% INH SOLN 0.5 MG/2.5 ML VIAL INHALATION ×2 (02:17→08:29)
[2020-11-02 07:00] LABS: INR 1.4; Prothrombin Time 18.1 Seconds (11.1-14.7)
[2020-11-02] MEDS: buPROPion HCL XL (24 HR) 150 MG TABCR 300 MG PO (08:21)
[2020-11-02] MEDS: POTASSIUM CHLORIDE 10 MEQ TABLET.ER PO (08:22)
[2020-11-02] MEDS: CARBIDOPA/LEVODOPA 25/100 MG TABLET 2 TABLET PO (08:22)
[2020-11-02] MEDS: GABAPENTIN 100 MG CAPSULE PO (08:22)
[2020-11-02] MEDS: FLUoxetine HCL 20 MG CAPSULE 40 MG PO (08:22)
[2020-11-02] MEDS: QUEtiapine FUMARATE 25 MG TABLET 50 MG PO (08:22)
[2020-11-02] MEDS: PRIMIDONE 50 MG TABLET PO (08:23)
[2020-11-02] MEDS: ATORVASTATIN 10 MG TABLET PO (08:23)
[2020-11-02] MEDS: FUROSEMIDE 40 MG TABLET PO (08:23)
[2020-11-02] MEDS: lisinopriL 10 MG TABLET PO (08:23)
[2020-11-02] MEDS: atenoloL 50 MG TABLET PO (08:23)
--- NOTE | 2020-11-02 12:14 | PM.DS ---
DS: Admitting Diagnosis Admitting Diagnosis Admitting Diagnosis: Shortness of breath DS: Discharge Diagnosis Discharge Diagnosis (1) Pneumonia: Qualifiers: Laterality: unspecified laterality Lung location: unspecified part of lung Pneumonia type: due to unspecified organism Qualified Code(s): J18.9 - Pneumonia, unspecified organism Code(s): J18.9 - Pneumonia, unspecified organism Status: Acute Assessment and Plan: COVID infection ruled out Continue empiric antibiotic therapy with Rocephin and azithromycin transition to oral Zithromax on discharge (2) Sepsis: Qualifiers: Acute respiratory failure type: with hypoxia Sepsis acute organ dysfunction status: with acute organ dysfunction Sepsis type: sepsis due to unspecified organism Severe sepsis acute organ dysfunction type: acute respiratory failure Severe sepsis shock status: without septic shock Qualified Code(s): A41.9 - Sepsis, unspecified organism; R65.20 - Severe sepsis without septic shock; J96.01 - Acute respiratory failure with hypoxia Code(s): A41.9 - Sepsis, unspecified organism Status: Resolved Assessment and Plan: Supported by criteria of leukocytosis, tachycardia, tachypnea and underlying pneumonia. Empiric antibiotic therapy with Rocephin and azithromycin. (3) Acute respiratory failure with hypoxia: Code(s): J96.01 - Acute respiratory failure with hypoxia Status: Acute Assessment and Plan: Due to pneumonia and CHF. (4) Lymphadenopathy: Code(s): R59.1 - Generalized enlarged lymph nodes Status: Acute Assessment and Plan: Imaging studies demonstrated bulky right axillary and subpectoral lymphadenopathy and mild mediastinal lymphadenopathy consistent with lymphoma or metastatic disease. Family want hospice ok for axillary lymph node biopsy if needed for hospice team and diagnosis. Hospice team will contact patient on discharge. (5) Congestive heart failure (CHF): Qualifiers: Heart failure chronicity: acute on chronic Heart failure type: unspecified Qualified Code(s): I50.9 - Heart failure, unspecified Code(s): I50.9 - Heart failure, unspecified Status: Acute Assessment and Plan: Continue IV lasix while in the hospital. (6) Traumatic closed displaced fracture of rib: Qualifiers: Encounter type: initial encounter Laterality: right Qualified Code(s): S22.31XA - Fracture of one rib, right side, initial encounter for closed fracture Code(s): S22.39XA - Fracture of one rib, unspecified side, initial encounter for closed fracture Status: Acute Assessment and Plan: He is evidently had a fall several months ago (7) Dysphagia: Qualifiers: Dysphagia type: unspecified Qualified Code(s): R13.10 - Dysphagia, unspecified Code(s): R13.10 - Dysphagia, unspecified Status: Acute Assessment and Plan: Patient's reports that the patient seems to have some difficulty swallowing at times. He used evidently had prior EGDs without actual esophageal dilatation (8) Supratherapeutic INR: Code(s): R79.1 - Abnormal coagulation profile Status: Acute Assessment and Plan: Pt can continue to hold Coumadin in case the patient and family decided to proceed with lymph node biopsy. Continue INR monitoring at home. DS: Summary Hospital Course Hospital Course: 80 year old male with a past medical history of hypertension, CHF, atrial fibrillation and Parkinson's to shortness of breath and orthopnea. Pt complains of sob. Pt has history of dementia is a poor historian. Family requesting hospice. Pt has lymph nodes and suspicious lymphadenopathy. Pt can have axillary lymph node biopsy for hospice team and diagnosis. Pt is ok for diagnostic lymph node biopsy. Pt will be contacted by hospice team on discharge. Time Spent with Patient Time attestation: Total time spen
== END 2020-11-02 13:20 | disposition hospice, home (50) | DRG 853 ==
LOC: ANHED 11:15 → ANHIMU 23:13 → ANH3MEDSUR 11-02 12:09 → ANHIMU 11-06 15:26
PROVIDERS: Emergency Medicine; Internal Medicine; Admitting Provider Family Medicine; Emergency Provider Emergency Medicine; PCP Family Medicine; Visit Provider Family Medicine
DX: A41.9 Sepsis, unspecified organism (principal); J18.9 Pneumonia, unspecified organism; J96.01 Acute respiratory failure with hypoxia; I50.33 Acute on chronic diastolic (congestive) heart failure; S22.41XA Multiple fractures of ribs, right side, initial encounter for closed fracture; R65.20 Severe sepsis without septic shock; I11.0 Hypertensive heart disease with heart failure; I48.91 Unspecified atrial fibrillation; Z20.822 Contact with and (suspected) exposure to COVID-19; W19.XXXA Unspecified fall, initial encounter; G20 Parkinson's disease; R13.10 Dysphagia, unspecified
CPT/HCPCS: 36415; 36600; 38505; 71045; 71250; 76942; 80048; 82375; 82805; 83050; 83605; 83735; 83880; 84132; 84484; 85025; 85027; 85610; 85730; 87040; 88108; 88184; 88185; 88305; 88342; 92610; 93005; 94640; 96365; 96375; 99291; A9270; C9803; J0456; J0696; J1100; J1940; U0003